=== PATIENT | male | born 1935 | race Caucasian/White ===

== ENCOUNTER 2016-03-10 09:02 | Outpatient (CLI) | payer MEDICARE, BC | END 2016-03-10 09:03 | LOC: NAVSJIPCSP 09:02 | PROVIDERS: ATTEND Internal Medicine | DX: E78.5 Hyperlipidemia, unspecified (principal); Z79.899 Other long term (current) drug therapy | CPT/HCPCS: 36415; 80061 ==

== ENCOUNTER 2016-06-14 09:24 | Outpatient (CLI) | payer MEDICARE, BC ==
[2016-06-14 13:08] LABS: Cardiac Risk 2.7 (Less than 4.5)
== END 2016-06-14 09:25 | disposition home or self-care (01) ==
LOC: NAVSJIPCSP 09:24
PROVIDERS: ATTEND Internal Medicine
DX: E78.5 Hyperlipidemia, unspecified (principal); Z79.899 Other long term (current) drug therapy
CPT/HCPCS: 36415; 80061

== ENCOUNTER 2016-09-14 08:57 | Outpatient (CLI) | payer MEDICARE, BC ==
[2016-09-14 13:08] LABS: Cardiac Risk 2.2 (Less than 4.5)
== END 2016-09-14 08:58 | disposition home or self-care (01) ==
LOC: NAVSJIPCSP 08:57
PROVIDERS: ATTEND Internal Medicine
DX: E78.5 Hyperlipidemia, unspecified (principal); Z79.899 Other long term (current) drug therapy
CPT/HCPCS: 36415; 80061

== ENCOUNTER 2017-12-12 08:53 | Outpatient (CLI) | payer MEDICARE, BC ==
--- NOTE | 2017-12-12 11:40 | RAD ---
3 VIEWS BILATERAL RIBS: Date: 12/12/17 HISTORY: Left-sided rib pain. History of left-sided rib fractures. FINDINGS: Three views of bilateral ribs shows callus surrounding multiple healing left rib fractures. These inv olve at least the 7th and 8th ribs. No right-sided rib fractures are seen. No pneumothorax is present . No underlying pleural thickening is seen. IMPRESSION: Healing left posterior rib fractures. POS: [facility]
--- NOTE | 2017-12-12 11:48 | RAD ---
LUMBAR SPINE 5 VIEWS: Date: 12/12/17 HISTORY: 81-year-old male with history of rib pain without recent injury, chronic low back pain. FINDINGS: Severe dextroscoliosis of the lumbar vertebral column with very severe multilevel disc osteophytosis and facet arthrosis, particularly of the mid and lower lumbar spine. No evidence for significant acut e compression fracture or focal bone lesion. IMPRESSION: Severe dextroscoliosis. Very markedly severe multilevel disc osteophytosis and facet arthrosis, evide nce for spondylosis. No overt acute fracture or focal bone lesion. POS: [facility]
== END 2017-12-12 08:54 | disposition home or self-care (01) ==
LOC: NAV RAD 08:53
PROVIDERS: ATTEND Family Medicine
DX: R07.81 Pleurodynia (principal); M54.5 Low back pain; G89.29 Other chronic pain; M41.9 Scoliosis, unspecified; M47.896 Other spondylosis, lumbar region; S22.41XD Multiple fractures of ribs, right side, subsequent encounter for fracture with routine healing; M25.78 Osteophyte, vertebrae
CPT/HCPCS: 71110; 72110

== ENCOUNTER 2018-06-21 10:40 | Outpatient (CLI) | payer MEDICARE, BC ==
--- NOTE | 2018-06-21 10:55 | RAD ---
XR Ribs Lt>=2 View W/PA CXR HISTORY: Left chest wall pain COMPARISON: 12/12/2017 study FINDINGS: Heart size is within normal limits. There are atherosclerotic changes of the aorta. Scoliot ic changes present. There are mild chronic lung changes seen. Old left rib fractures are again identified. No definite acute injury. Marked arthritic changes of the left shoulder present. IMPRESSION: Old left rib fractures.
== END 2018-06-21 10:41 | disposition home or self-care (01) ==
LOC: NAV RAD 10:40
PROVIDERS: ATTEND Internal Medicine
DX: R07.89 Other chest pain (principal); Z87.81 Personal history of (healed) traumatic fracture

== ENCOUNTER 2019-02-26 09:19 | Outpatient (CLI) | payer MEDICARE, BC ==
--- NOTE | 2019-02-26 09:55 | CT ---
Exam: Head CT without contrast HISTORY: Amnesia. Increasing memory loss. COMPARISON: none FINDINGS: Hemorrhage: No intraparenchymal hemorrhage or extra-axial hematoma. Brain parenchyma: Cortical dennis-white matter differentiation is preserved. No mass effect or midline shift. 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 White matter hypodensities due to chronic small vessel ischemic change. Ventricular system: Ventricles and sulci are patent and symmetric. Calvarium: Intact. Sinuses and mastoid air cells: Adequate aeration. IMPRESSION: No acute intracranial process.
== END 2019-02-26 09:20 | disposition home or self-care (01) ==
LOC: NAV CT 09:19
PROVIDERS: ATTEND Internal Medicine
DX: R41.3 Other amnesia (principal)
CPT/HCPCS: 70450

== ENCOUNTER 2020-12-25 15:37 | Emergency (ER) | payer OTHER, MEDICARE, BC ==
[2020-12-25] MEDS ORDERED: Acetaminophen/Codeine 30-300mg Tablet ONE (17:18)
== END 2020-12-25 17:35 | disposition home or self-care (01) ==
LOC: NAV ERS 15:37
DX: S22.42XA Multiple fractures of ribs, left side, initial encounter for closed fracture (principal); E78.5 Hyperlipidemia, unspecified; E78.00 Pure hypercholesterolemia, unspecified; I10 Essential (primary) hypertension; Z79.899 Other long term (current) drug therapy; Z79.82 Long term (current) use of aspirin; Z85.828 Personal history of other malignant neoplasm of skin; W18.30XA Fall on same level, unspecified, initial encounter